=== PATIENT | male | born 1985 | race Asian ===

== ENCOUNTER 2018-06-28 10:35 | Emergency (ER) | payer BC, OTHER ==
[~2018-06-28] VITALS: Ht 162.6 cm; Wt 95.3 kg
--- NOTE | 2018-06-28 10:49 | NUR ---
BIB SELF W C/O SOB SINCE LAST NIGHT "CATCHING MY BREATH WHEN I GO UP THE STAIRS", TO ER BED 9, HOOKED TO MONITOR, CHANGED TO ANABEL, AWAITING MD CUNN[place]HAM
--- NOTE | 2018-06-28 10:54 | NUR ---
DR DAN AT BEDSIDE FOR EVAL
[2018-06-28 11:19] LABS: BASOPHILS # (AUTO) 0.1 /CMM (0.0-0.2); BASOPHILS % (AUTO) 1.3 % (0.0-2.0); EOSINOPHILS % (AUTO) 2.3 % (0.0-6.0); HEMATOCRIT 45 % (39-51); HEMOGLOBIN 14.2 g/dL (13.5-17.5); LYMPHOCYTES # (AUTO) 2.9 /CMM (0.8-4.8); LYMPHOCYTES % (AUTO) 48.2 % (20.0-44.0); MEAN CORPUSCULAR HGB CONC 31 g/dl (31.0-36.0); MEAN CORPUSCULAR VOLUME 63 fL (80-96); MONOCYTES # (AUTO) 0.5 /CMM (0.1-1.30); MONOCYTES % (AUTO) 7.7 % (2.0-12.0); NEUTROPHILS # (AUTO) 2.5 /CMM (1.8-8.9); NEUTROPHILS % (AUTO) 40.5 % (43.0-81.0); PLATELET COUNT (AUTO) 279 /CMM (150-450); RED BLOOD CELL COUNT(AUTO) 7.25 MIL/uL (4.5-6.0); WHITE BLOOD COUNT (AUTO) 6.1 K/uL (4.3-11.0)
[2018-06-28 11:22] LABS: CALCIUM, SERUM 9.5 mg/dL (8.5-10.1); CARBON DIOXIDE 31 mmol/L (21-32); CHLORIDE 103 mmol/L (98-107); CREATININE 0.8 mg/dL (0.6-1.3); GLUCOSE 97 mg/dL (74-106); SODIUM SERUM 139 mmol/L (136-145); UREA NITROGEN, BLOOD 11 mg/dL (7-18)
[2018-06-28 11:34] LABS: B-TYPE NATRIURETIC PEPTIDE 12 PG/ML (0-125)
[2018-06-28 12:45] LABS: EOSINOPHILS % (MANUAL) 1 % (0-4); LYMPHOCYTES % (MANUAL) 40 % (16-48); MONOCYTES % (MANUAL) 3 % (0-11.0); NEUTROPHILS % (MANUAL) 56 (42-76)
--- NOTE | 2018-06-28 13:00 | NUR ---
Patient discharged to home in stable condition. Written and verbal after care instructions given. Patient verbalizes understanding of instruction.
[2018-06-28 13:37] VITALS: BP 141/78
== END 2018-06-28 13:00 | disposition home or self-care (01) ==
LOC: ER 10:41
DX: R06.02 Shortness of breath (principal)
CPT/HCPCS: 36415; 71045; 80048; 83880; 84484; 85025; 85378; 93005; 99284; A4606